=== PATIENT | male | born 1975 | race Caucasian/White ===

== ENCOUNTER 2022-11-23 09:03 | Emergency (ER) | payer SELFPAY ==
[2022-11-23 09:04] VITALS: BP 141/95; PULSE 78; RESP 18; TEMP 36.9; O2SAT 98; BMI 27.1
--- NOTE | 2022-11-23 09:13 | ED_ITS ---
HPI - Dental/Oral General: Chief complaint: Dental/Oral Stated complaint: SORE THROAT Time Seen by Provider: 11/23/22 09:04 Source: patient Mode of arrival: EMS Limitations: no limitations History of Present Illness: 47-year-old male presents to the ER via EMS today for dental pain. Patient reports for the last week he has had increasing dental pain and difficulty eating. Patient reports pain is in the upper portion on the left side of his mouth. He reports poor dentition with no dentist. He has not seen a dentist or PCP regarding this pain. Patient reports EMS told him he might have an abscess. Denies any fevers. Denies any drainage or abscess within the mouth that he is aware of. Review of Systems General: Reports: 10 or more systems reviewed and unremarkable except in HPI and below Physical Exam Const: COMMON NORMALS: no acute distress, average body habitus, patient oriented x3, no limitations, healthy appearing, alert and well nourished HENMT: COMMON NORMALS: normocephalic, atraumatic, external ears normal, Normal external nose present, Normal nasal mucous membranes and turbinates present and moist oral mucous membranes HEAD & SCALP: normocephalic and atraumatic NOSE: Normal external nose present and Normal nasal mucous membranes and turbinates present EXTERNAL EAR: Yes external ears normal MOUTH: tongue normal and other (Patient has an abnormal plaque-like lesion on the left upper palate) MOUTH IMAGES: 1. plaque like lesion THROAT: posterior oropharynx normal OTHER: Patient has poor dentition but no obvious fractures or abscesses. Neck/C-Spine: COMMON NORMALS: full ROM and no lymphadenopathy Resp: COMMON NORMALS: normal respiratory effort EFFORT & INSPECTION: Yes able to speak in complete sentences Cardio: COMMON NORMALS: regular rate, regular rhythm and No murmurs present (Cardio) RATE: regular rate RHYTHM: regular rhythm Extremity: COMMON NORMALS: normal to inspection and full ROM Neuro: COMMON NORMALS: patient oriented x3 SENSORIUM/ORIENTATION: Yes alert Psych: COMMON NORMALS: mental status grossly normal, Normal thought process present and cooperative THOUGHT PROCESS: Normal thought process present Skin: COMMON NORMALS: no rashes or lesions noted GENERAL SKIN EXAM: no rashes or lesions noted Course ED course: Patient presents for dental/mouth pain for the last 1 week. Patient did come via EMS for unspecified reasons. He has not been on any antibiotics. Denies any fevers. Patient's vitals are stable. Vital Signs: Vital signs: Vital Signs Temperature 98.4 F 11/23/22 09:04 Pulse Rate 78 11/23/22 09:04 Respiratory Rate 18 11/23/22 09:04 Blood Pressure 141/95 11/23/22 09:04 Pulse Oximetry 98 11/23/22 09:04 Oxygen Delivery Me thod Room Air 11/23/22 09:04 MDM - Dental/Oral Medical Decision Making On exam patient is noted to have a plaque-like lesion in the left side of the upper palate. No obvious abscess or drainage noted. There are some areas of this that are almost ulcerated and appear erythematous. I discussed with patient that this could be the result of an abscess but this may also be some sort of other lesion. If not improving with antibiotics patient needs to follow-up with ENT for possible biopsy and discussion of further work-up. Patient verbalized understanding and was in agreement with the treatment plan. Critical Care Time Critical Care Time: Critical Care Time: No Discharge Plan Discharge Patient Disposition: Home Clinical Impression: Acute oral pain Condition: Stable Prescriptions: New amoxicillin 500 mg capsule 500 mg PO TID 10 Days Qty: 30 0RF Discharge Orders: Discharge ED (Routine); Ordered 11/23/22 Ordered By: Colette Garland Discharge Diet: Advance as tolerated Discharge Activity: Resume usual activity Patient Instructions: Opioid Safety, Pain Management Activity Restrictions/Additional Instructions: Take antibiotics as prescribed. If pain not improving in 7 to 10 days follow-up with ENT as discussed for further evaluation of lesion in mouth. Coding Level of Care Code ED [employer] for [facility]
[2022-11-23 09:19] VITALS: BP 141/80; PULSE 71; O2SAT 97
--- NOTE | 2022-11-26 13:43 | DCPLANNER ---
manager therapy was triggered to call patient due to no primary care physician - patient does not live in the area.
== END 2022-11-23 09:20 | disposition home or self-care (01) ==
PROVIDERS: Emergency Provider Physician Assistant
DX: K13.79 Other lesions of oral mucosa (principal)
CPT/HCPCS: 99283